=== PATIENT | male | born 1990 | race Caucasian/White ===

== ENCOUNTER 2017-12-15 10:56 | Emergency (ER) | payer OTHER, SELFPAY ==
--- NOTE | 2017-12-15 10:59 | ED.VISSUMM ---
- ER Visit Summary Date of Service: 12/15/17 Chief Complaint: Right wrist pain History of Present Illness: The patient is a 27 M who fell off of a 6 foot ladder. He fell onto an outstretched right arm. He has pain and deformity in the right wrist area. He was unable to move it after the fall. EMS was called. He refused any medications for them. He has a history of a wrist fracture as a child but has never had any surgeries on that arm. Physical Examination: Vital signs are reviewed. Right wrist exam reveals a deformity of the wrist. He is tender to palpation diffusely. He has less than 2 second capillary refill. His sensation pulses are intact. Denies any elbow pain or shoulder pain Test Results: X-rays reveal a distal radius fracture with 45? of angulation. I spoke with Dr. Gay and informed them that I could do the reduction. He was okay with this. Patient had been treated with morphine, Dilaudid and fentanyl for pain. He did receive propofol for sedation. Closed reduction was performed by myself. An AP Ortho-Glass splint was then placed. Repeat x-rays reveal that the distal piece is better aligned. Patient was given Percocet for home. He will follow up with Dr. Gay. Emergency Department Course and Treatment: Procedure note: Informed consent was obtained. Patient was given 140 mg of propofol IV for sedation. Closed reduction was performed by myself by pushing on the distal piece. A palpable movement of the distal piece was felt. An AP splint was placed while patient was sedated. No complications. Treatment Plan: [] Disposition: Discharge Impression: Closed distal radius fracture, right Procedural sedation by ED physician Closed reduction by ED physician This note was generated with [employer] dictation software. It may contain incorrect words, spelling, and punctuation that were not noted in review of the chart prior to signing ED Disposition - Plan for ED Patient: Chief Complaint: Fall Referrals: [facility] Doctor,Out of [NON-STAFF] -
[2017-12-15 11:00] VITALS: BP 116/71; PULSE 64; RESP 16; TEMP 36.7; O2SAT 98; BMI 33.1
[2017-12-15] MEDS: Ondansetron 4 MG/2 ML Vial IV (11:09)
[2017-12-15] MEDS: morphine 8 MG/ML Syringe IV (11:09)
[2017-12-15] MEDS: HYDROmorphone 1 MG/ML Syringe IV (11:37)
--- NOTE | 2017-12-15 11:45 | RAD_ITS ---
STUDY: X-RAY - RIGHT WRIST REASON FOR EXAM: Male, 27 years old. FELL FROM LADDER TODAY. RIGHT WRIST PAIN. TECHNIQUE: 2 view(s) of the wrist were obtained. COMPARISON: None. FINDINGS: Displaced angulated fracture of the distal metaphysis of the radius. The angle at the fracture site is 43 degrees. Normal radiocarpal articulation. Normal distal radioulnar articulation. Normal carpal bones. Normal carpal articulations. Normal carpometacarpal articulation of the thumb. Normal second through fifth carpometacarpal articulations. Normal visualized metacarpal bones. The soft tissue structures are unremarkable. RAD/Wrist 2 Views IMPRESSION: Displaced angulated fracture of the distal metaphysis of the radius. The angle at the fracture site is 43 degrees. Electronically Signed: Penny Temple MD at 12:27 EDT Tel , Service support ,
[2017-12-15 12:09] VITALS: PULSE 76; RESP 18; O2SAT 98
--- NOTE | 2017-12-15 12:09 | ED.RN ---
1200-Patient had episode of hyperventilation, entire body shaking. Placed on 12L NRB and coached through breathing exercises. Shaking subsided and symptoms improved. O2 removed.
--- NOTE | 2017-12-15 12:11 | ED.RN ---
EMPLOYER WAS CALLED. ISABELLA DOESN'T WANT A DRUG SCREEN PREFORMED. ISABELLA WANTED THE NEAREST FACILITY TO THE PATIENT FOR FOLLOW-UP.
--- NOTE | 2017-12-15 12:13 | ED.RN ---
ISABELLA [phone]
[2017-12-15] MEDS: fentaNYL 100 MCG/2 ML Ampul 50 MCG IV (12:55)
[2017-12-15 13:12] VITALS: BP 138/98; BP 144/98; BP 151/90; PULSE 81; PULSE 85; PULSE 88; RESP 13; RESP 14; RESP 16; O2SAT 100
[2017-12-15 13:29] VITALS: BP 138/98; PULSE 87; RESP 16; O2SAT 98
[2017-12-15] MEDS: Propofol 200 MG/20 ML Vial IV BOLUS (13:30)
--- NOTE | 2017-12-15 13:30 | RAD_ITS ---
STUDY: X-RAY - RIGHT WRIST REASON FOR EXAM: Male, 27 years old. post-reduction, right wrist injury from fall TECHNIQUE: 2 view(s) of the wrist were obtained. COMPARISON: None. FINDINGS: There is improved alignment of the fracture site. The soft tissue structures are unremarkable. RAD/Wrist 2 Views IMPRESSION: Improved alignment at the fracture site. Electronically Signed: Penny Temple MD at 14:26 EDT Tel , Service support ,
--- NOTE | 2017-12-15 13:54 | ED.DEP ---
ED Disposition - Plan for ED Patient: Disposition: Home or Assisted Living Chief Complaint: Fall Instructions: ED Fx Colles Wrist Redu Requ Prescriptions: Oxycodone HCl/Acetaminophen [Percocet 5/325] 1 tab PO Q6H PRN PRN 3 Days #12 tab PRN Reason: Pain Referrals: [facility] Doctor,Out of [NON-STAFF] -
[2017-12-15] MEDS: oxyCODONE 5 MG Tablet PO (14:12)
[2017-12-15 14:21] VITALS: BP 133/93; PULSE 75; RESP 16; O2SAT 98
== END 2017-12-15 14:23 | disposition home or self-care (01) ==
PROVIDERS: Emergency Provider Emergency Medicine
DX: M25.531 Pain in right wrist (principal); S52.501A Unspecified fracture of the lower end of right radius, initial encounter for closed fracture; W11.XXXA Fall on and from ladder, initial encounter; Y93.9 Activity, unspecified; Y92.89 Other specified places as the place of occurrence of the external cause; Y99.9 Unspecified external cause status
CPT/HCPCS: 25605; 73100; 73110; 99152; 99285; J7030; A4216; J2405